=== PATIENT | male | born 1950 | race Caucasian/White ===

== ENCOUNTER 2017-03-14 15:20 | Emergency (ER) | payer MEDICARE, MEDICAID ==
[~2017-03-14] VITALS: Ht 175.3 cm; Wt 55.0 kg
[2017-03-14 15:30] VITALS: BP 138/88
[2017-03-14] MEDS ORDERED: GUAI5SYR4 PO (17:01)
== END 2017-03-14 17:15 | disposition home or self-care (01) ==
LOC: ER 15:20
DX: R05 Cough (principal); R06.02 Shortness of breath; Z87.891 Personal history of nicotine dependence; Z88.6 Allergy status to analgesic agent
CPT/HCPCS: 71046; 99284

== ENCOUNTER 2017-03-17 03:24 | Emergency (ER) | payer MEDICARE, MEDICAID ==
[~2017-03-17] VITALS: Ht 203.2 cm; Wt 56.0 kg
[~2017-03-17 03:24] MED LIST: GUAI5SYR4 PO
[2017-03-17 04:57] VITALS: BP 168/103
== END 2017-03-17 03:45 | disposition home or self-care (01) ==
LOC: ER 03:24
DX: Z00.8 Encounter for other general examination (principal); M19.90 Unspecified osteoarthritis, unspecified site; Z88.6 Allergy status to analgesic agent
CPT/HCPCS: 99281